=== PATIENT | female | born 1975 | race Caucasian/White ===

== ENCOUNTER 2017-07-10 16:41 | Emergency (ER) | payer OTHER ==
[2017-07-10 18:25] LABS: ABS Basophils 0 10^3/ul (0-0.2); ABS Eosinophils 0 10^3/ul (0-0.6); ABS Lymphocytes 1.7 10^3/ul (1.0-4.8); ABS Monocytes 0.3 10^3/ul (0-0.8); ABS Neutrophils 6.6 10^3/ul (1.5-7.7); ABS Nucleated RBC 0 10^3/ul; Eosinophil % 0 % (0-6); Hematocrit 42 % (35-47); Hemoglobin 14.5 g/dl (12.0-16.0); Lymphocyte % 20.2 % (25-47); Mean Corpuscular HGB Conc 34 g/dl (31-36); Mean Corpuscular Hemoglobin 31 pg (27-31); Mean Corpuscular Volume 91 fL (80-97); Mean Platelet Volume 8 um3 (7.4-10.4); Nucleated Red Blood Cells % 0; Platelet Count 269 10^3/ul (150-450); Red Blood Count 4.65 10^6/ul (4.0-5.4); Red Cell Distribution Width 13 % (10.5-15); White Blood Count 8.5 10^3/ul (3.5-10.8)
--- NOTE | 2017-07-10 18:32 | RAD ---
INDICATION: Chest pain. COMPARISON: There are no prior studies available for comparison. TECHNIQUE: Dual-energy PA and lateral views of the chest were obtained. FINDINGS: The heart is within normal limits in size. Mediastinal and hilar contours appear within normal limits. The lungs are clear. There is suggestion of a trace left pleural effusion. IMPRESSION: POSSIBLE TRACE LEFT PLEURAL EFFUSION.
[2017-07-10 18:36] LABS: EGFR Non-African American 67.5 (>60)
[2017-07-10] MEDS ORDERED: Acetaminophen TAB* 325 MG PO ONE (18:49)
[2017-07-10] MEDS ORDERED: Ketorolac INJ* 30 MG/ML 1 ML VIAL IV PUSH PRN (18:50)
[2017-07-10] MEDS ORDERED: Albuterol/Ipratropium NEB.SOL* Albuterol 2.5 MG/Ipratropium 0.5 MG 3 ML INH ONE (19:19)
[2017-07-10] MEDS ORDERED: Albuterol 2.5 MG/3 ML NEB.SOL* (0.083%) ONE (19:35)
[2017-07-10] MEDS: Albuterol 2.5 MG/3 ML NEB.SOL* (0.083%) INH SCH (19:43)
[2017-07-10] MEDS ORDERED: oxyCODONE/Acetamin 5/325 MG* TAB PO ONE (20:38)
[2017-07-10 21:03] VITALS: BP 103/48
--- NOTE | 2017-07-10 23:44 | ED ---
Lorraine Nova Abhishek, scribed for Rancho Avalos MD on 07/10/17 at 2056 . Progress - Progress Note Progress Note: Pt was signed out from Dr. Griffith awaiting lab results. Upon evaluation, we reviewed the lab results and the radiology reports with the pt. Course/Dx - Course Course Of Treatment: Pt exhibited mild expiratory wheezes that were treated with bronchodilators in the ED. Pt is currently on Prednisone. The pt will be discharged home with a dx of atypical chest pain. Pt is recommended to follow up with PCP within 2 to 3 days. - Diagnoses Provider Diagnoses: Atypical chest pain The documentation as recorded by the Lorraine trimble Abhishek accurately reflects the service I personally performed and the decisions made by Bailey benítez Abdul, MD.
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
== END 2017-07-10 21:02 ==
LOC: ED 16:41
DX: R07.89 Other chest pain (principal); R06.02 Shortness of breath
CPT/HCPCS: 36415; 71046; 80053; 82550; 82553; 83605; 83880; 84443; 84484; 85025; 85379; 85730; 87502; 93005; 94640; 99283; A9270-GY; J1885